=== PATIENT | female | born 1970 | race Caucasian/White ===

== ENCOUNTER 2017-07-04 05:51 | Day surgery (SDC) | payer OTHER ==
[2017-07-02 15:05] VITALS: BMI 30.9
--- NOTE | 2017-07-04 07:47 | HP ---
Admitting History and Physical - Primary Care Physician PCP: Sadiq Lester ([facility]) - Admission Chief Complaint: subluxation of the left 2nd metatarsal phalangeal joint History Source: Medical Record (deferred to PCP) - Past Medical History ...LMP: 07/02/16 - Smoking History Smoking history: Never smoked Have you smoked in the past 12 months: No If you are a former smoker, when did you quit?: 30YRS AGO - Alcohol/Substance Use Hx Alcohol Use: Yes (ON OCCASION) Home Medications - Allergies Allergies/Adverse Reactions: Allergies Allergy/AdvReac Type Severity Reaction Status Date / Time No Known Drug Allergies Allergy Verified 07/02/17 14:55 - Home Medications Home Medications: Ambulatory Orders Oxycodone HCl/Acetaminophen [Percocet 5-325 mg Tablet] 1 combo PO TID PRN Physical Examination Musculoskeletal: Yes: Other (tranverse plane subluxation of the 2nd metatarsal phalangeal joint) Assessment/Plan Assessment Left 2nd metatarsal phalangeal joint subluxation with excessively long 2nd metatarsal. Plan Betzy Osteotomy with repair of plantar ligaments and repositioning of the 2nd toe.
[2017-07-04] MEDS ORDERED: PROMETHAZINE HCL 25 MG/1 ML VIAL IVPUSH PRN (09:07)
[2017-07-04] MEDS ORDERED: ONDANSETRON 4 MG/2 ML VIAL IVPUSH PRN (09:07)
[2017-07-04] MEDS ORDERED: oxyCODONE HCL 5 MG TABLET PO PRN (09:07)
[2017-07-04] MEDS ORDERED: LACTATED RINGERS SOLUTION 1,000 ML IV SCH (09:15)
[2017-07-04] MEDS ORDERED: BUPIVACAINE HCL/PF 0.5% (5MG/ML) 10 ML VIAL ONE ×2 (09:18→10:13)
[2017-07-04] MEDS ORDERED: MIDAZOLAM HCL 2 MG/2 ML SINGLE DOSE VIAL ONE ×4 (09:41→11:21)
[2017-07-04] MEDS ORDERED: LIDOCAINE 1%/EPI 1:100000 (20 ML MULTI DOSE VIAL) ONE (10:13)
[2017-07-04] MEDS ORDERED: ceFAZolin SODIUM 1 GM VIAL IVPB ONE (11:20)
[2017-07-04] MEDS ORDERED: ceFAZolin SODIUM 1 GM VIAL ONE (11:26)
[2017-07-04] MEDS ORDERED: BUPIVACAINE HCL/PF 0.5% (5MG/ML) 10 ML VIAL IJ ONE (11:32)
[2017-07-04] MEDS ORDERED: LIDOCAINE 1%/EPI 1:100000 (20 ML MULTI DOSE VIAL) IJ ONE (11:32)
[2017-07-04] MEDS ORDERED: PROPOFOL 20 ML ONE (12:12)
[2017-07-04 13:38] VITALS: TEMP 97.9
[2017-07-04 16:48] VITALS: BP 111/59; PULSE 82
--- NOTE | 2017-07-05 11:32 | OP ---
DATE OF OPERATION: 07/04/2017 SURGEON: Sadiq Lester DPM PREOPERATIVE DIAGNOSIS: Left 2nd toe medial subluxation with elongated left 2nd metatarsal. POSTOPERATIVE DIAGNOSIS: Left 2nd toe medial subluxation with elongated left 2nd metatarsal. PROCEDURES: 1. Left 2nd metatarsal Betzy transverse oblique osteotomy with screw fixation. 2. Repair of lateral 2nd metatarsophalangeal joint lateral ligaments. 3. Capsulotomy of the medial 2nd metatarsophalangeal joint ligaments and capsule. DESCRIPTION OF PROCEDURE: Under fractional anesthesia and a surgical scrub with Betadine scrub and solution x2, the patient was draped using sterile technique. After 3 minutes of left limb elevation, a left ankle tourniquet was inflated to 250 mmHg pressure for 59 minutes. Inspection of the left foot especially on loading showed a medial subluxation of the 2nd metatarsophalangeal joint partially due to an excessively long left 2nd metatarsal. Using a No. 15 surgical blade, a linear longitudinal incision was made on the dorsolateral aspect of the left 2nd metatarsophalangeal joint. The incision was deepened through fascia and retracted exposing the joint capsule and extensor apparatus. Using the same longitudinal incision, the joint capsule and periosteum and medial and lateral metatarsophalangeal joint ligaments were reflected from the 2nd metatarsophalangeal joint. Inspection of the left 2nd metatarsophalangeal joint showed a normal 2nd metatarsal head with simple medial subluxation of the toe. Inspection of the plantar plate through the joint space showed a normal, intact plantar plate with no sign of tear or articular damage. Using the sagittal saw, an oblique transverse osteotomy was placed in the anatomic neck of the 2nd metatarsal, and once the osteotomy was completed through both cortices, the metatarsal head was transposed proximally 8 mm on the metatarsal shaft. It was then fixed using 2 Garry 2-0 mini breakoff screws for 2-point fixation. The wound was irrigated with sterile saline and then the medial and lateral ligaments were addressing. Using a No. 15 blade, the medial 2nd metatarsophalangeal joint ligament was transversely incised and released to allow for lateral transposition of the toe. The lateral ligaments were repaired and sutured in a shortened fashion to also allow for repositioning of the 2nd toe. The extensor tendon and joint capsule were then repaired in normal anatomic position, and complete reduction of the 2nd toe was achieved in a normal anatomic position when the toe and foot were loaded. The ankle tourniquet was deflated after 59 minutes of inflammation. Vascular perfusion immediately returned to all 5 digits so a dry sterile dressing was applied to the left foot. The patient tolerated the surgical procedure well and left the operating room stable, alert, awake, and in no pain. MALU MARTÍNEZ/[id number]
--- NOTE | 2017-07-08 16:28 | PATH ---
Surgical Pathology Report Patient Name: CORINNA REYES [facility]. Rec. #: [id number] /Age/Gender: 1970 (Age: 47) / F Account: [id number] Location: [facility] SURGICAL Taken: 07/04/2017 Received: 07/04/2017 Reported: 07/08/2017 Physicians: Sadiq Lester M.D. Specimen(s) Received 2ND METATARSAL BONE Clinical History Dislocation of metatarsophalangeal joint left second Final Diagnosis BONE, SECOND METATARSAL, LEFT, JARON TRANSVERSE OSTEOTOMY WITH SCREW FIXATION, REPAIR OF LIGAMENTS, AND CAPSULOTOMY: BONE DEGENERATIVE CHANGES, AND SCANT FIBROADIPOSE TISSUE. Electronically Signed Juliana Zuñiga M.D. Gross Description Received in formalin labeled "second metatarsal bone," is a 0.9 x 0.5 x 0.2 cm fernandes, irregular portion of bone. The specimen is bisected and entirely submitted in one cassette, following decalcification. 07/07/2017 [facility]07/07/2017
== END 2017-07-04 15:30 | disposition home or self-care (01) ==
LOC: JASU-SURG 05:51
PROVIDERS: ATTEND Podiatrist Foot Surgery
PROC: 0SNN0ZZ Release Left Metatarsal-Phalangeal Joint, Open Approach (ICD-10-PCS; 2017-07-04)
PROC: 0QSP04Z Reposition Left Metatarsal with Internal Fixation Device, Open Approach (ICD-10-PCS; principal; 2017-07-04 09:30)
DX: S93.141A Subluxation of metatarsophalangeal joint of right great toe, initial encounter (principal)
CPT/HCPCS: 73630-TC-LT; 84703; 88304-TC; 88311-TC; 94760

== ENCOUNTER 2022-10-28 11:20 | Emergency (ER) | payer OTHER ==
[2022-10-28 11:28] VITALS: BP 130/84; PULSE 82; RESP 18; TEMP 98.2; BMI 28.1
[2022-10-28 12:03] LABS: EPI CELLS 2 /uL (0-25.1); HYALINE CASTS 0 /uL (0-3.1); URINE APPEARANCE CLEAR; URINE BILIRUBIN 1+ (NEGATIVE); URINE COLOR ORANGE; URINE GLUCOSE (UA) NEGATIVE (NEGATIVE); URINE KETONE NEGATIVE (NEGATIVE); URINE LEUK ESTERASE 1+ (NEGATIVE); URINE NITRITE POSITIVE (NEGATIVE); URINE PROTEIN NEGATIVE (NEGATIVE); URINE RBC 20 /uL (0-23.9); URINE WBC 2 /uL (0-25.8)
[2022-10-28 12:17] LABS: BASO % 0.7 % (0-2.0); EOS % 1.5 % (0-4.5); HEMATOCRIT 42.6 % (32.4-45.2); HEMOGLOBIN 14.2 GM/dL (10.7-15.3); LYMPH % 35.3 % (8-40); MCH 31.7 pg (25.7-33.7); MCHC 33.3 g/dl (32.0-36.0); MEAN CELL VOLUME 95.1 fl (80-96); MEAN PLT VOLUME 9.7 fl (7.5-11.1); MONO % 5.7 % (3.8-10.2); NEUT % 56.8 % (42.8-82.8); PLATELET COUNT 275 10^3/uL (134-434); RBC 4.48 M/mm3 (3.60-5.2); RDW 12.9 % (11.6-15.6); WHITE BLOOD COUNT 4.6 K/mm3 (4.0-10.0)
[2022-10-28 12:39] LABS: POTASSIUM 4.4 mmol/L (3.5-5.1)
[2022-10-28 12:41] LABS: CALCIUM 9.5 mg/dL (8.5-10.1)
[2022-10-28 12:42] LABS: ALBUMIN 4.2 g/dl (3.4-5.0); MAGNESIUM 2.4 mg/dL (1.8-2.4)
[2022-10-28 12:45] LABS: CREATININE 0.7 mg/dL (0.55-1.3)
[2022-10-28 12:47] LABS: BILIRUBIN,TOTAL 0.5 mg/dL (0.2-1); TOT PROT 7.3 g/dl (6.4-8.2)
== END 2022-10-28 16:28 | disposition home or self-care (01) ==
LOC: JERFT 11:20
DX: R35.0 Frequency of micturition (principal); R10.32 Left lower quadrant pain; M54.9 Dorsalgia, unspecified; K59.00 Constipation, unspecified; N32.9 Bladder disorder, unspecified; N83.291 Other ovarian cyst, right side
CPT/HCPCS: 36415; 74177-TC; 76830-TC; 76856-TC; 80053; 81003; 83735; 85025; 87086; 99285-25; Q9967